=== PATIENT | female | born 1995 | race Caucasian/White ===

== ENCOUNTER 2018-01-26 19:21 | Emergency (ER) | payer SELFPAY ==
[2018-01-26 20:01] VITALS: BP 144/80; PULSE 83; RESP 20; TEMP 98.4; O2SAT 99
[2018-01-26] MEDS ORDERED: DTap Vaccine 0.5 ml Vial IM ONE (20:37)
[2018-01-26] MEDS ORDERED: Tdap Vaccine 0.5 ml Vial (10-64 yrs) IM ONE (20:43)
--- NOTE | 2018-01-26 22:13 | C.PDOC ---
History Of Present Illness Pt presents to ER with c/o of pain to right foot s/p tripped and fell. Pt said her cat got startled when she fell and attacked her, pt sustained a bite and scratches to right thigh. Pt is not utd with tetanus. No head injuries Time Seen by Provider: 01/26/18 20:20 Chief Complaint (Nursing): Lower Extremity Problem/Injury History Per: Patient History/Exam Limitations: no limitations Onset/Duration Of Symptoms: Sudden Onset ([employer]) Past Medical History Vital Signs: Last Vital Signs Temp 98.4 F 01/26/18 19:57 Pulse 83 01/26/18 19:57 Resp 20 01/26/18 19:57 BP 144/80 01/26/18 19:57 Pulse Ox 99 01/26/18 22:25 - Medical History PMH: Bronchitis Family History: States: Unknown Family Hx - Social History Hx Tobacco Use: No Hx Alcohol Use: Yes Hx Substance Use: No - Immunization History Hx Tetanus Toxoid Vaccination: No Hx Influenza Vaccination: No Hx Pneumococcal Vaccination: No Review Of Systems Constitutional: Negative for: Fever Musculoskeletal: Positive for: Foot Pain (right) Skin: Positive for: Other (abrasions) Neurological: Negative for: Weakness, Numbness Physical Exam - Physical Exam Appears: Well, Non-toxic Skin: Other (multiple pattern of excoriations to right thigh and lower leg, with superficial bite wound to right ) Head: Atraumatic Eye(s): bilateral: Normal Inspection, PERRL Extremity: Tenderness (right great toe), Capillary Refill (< 2 sec), No Deformity, No Swelling Neurological/Psych: Oriented x3 Gait: Other (ambulatory with mild limp) ED Course And Treatment O2 Sat by Pulse Oximetry: 99 Pulse Ox Interpretation: Normal Progress Note: Pt placed in ortho shoe by RN for support. Pt d/c with pain meds and PO abx. Advised follow up Disposition Counseled Patient/Family Regarding: Diagnosis, Need For Followup, Rx Given - Disposition Referrals: [facility] [Outside] Disposition: HOME/ ROUTINE Disposition Time: 22:11 Condition: STABLE Additional Instructions: Leg elevation Bacitracin to area Appy ICE Shoe for support Return to ER if worse Prescriptions: Amoxicillin/Clavulanate [Augmentin 500 MG-125 MG] 1 tab PO TID #21 tab Ibuprofen [Motrin] 600 mg PO Q6H #20 tab Instructions: Toe Injury (DC), Animal Bite (ED) Forms: [employer] ([place]) - Clinical Impression Clinical Impression: Animal bite of lower leg, Sprain of toe
--- NOTE | 2018-01-27 08:35 | RAD ---
PROCEDURE: Radiographs of the right great toe. TECHNIQUE:: AP radiograph of the right foot, with oblique and lateral view of the right great toe. COMPARISON: None. FINDINGS: BONES: No acute fracture. JOINTS: Unremarkable. SOFT TISSUES: Normal. OTHER FINDINGS: None. IMPRESSION: No demonstrated fracture or dislocation.
== END 2018-01-26 22:15 | disposition home or self-care (01) ==
LOC: C.ER 19:21
DX: S70.371A Other superficial bite of right thigh, initial encounter (principal); W55.01XA Bitten by cat, initial encounter; S93.501A Unspecified sprain of right great toe, initial encounter; W01.0XXA Fall on same level from slipping, tripping and stumbling without subsequent striking against object, initial encounter